=== PATIENT | male | born 1970 | race Caucasian/White ===

== ENCOUNTER 2024-01-08 19:19 | Emergency (ER) | payer OTHER, SELFPAY ==
[2024-01-08 19:29] VITALS: BP 218/143; PULSE 64; RESP 17; TEMP 36.6; O2SAT 98; BMI 32.8
--- NOTE | 2024-01-08 19:39 | DI.RAD.S_ITS ---
PROCEDURE: XR SHOULDER LT MIN 2V INDICATIONS: fell over backwards, L shoulder pain and limited movement, TECHNIQUE: 3 views of the shoulder were acquired. COMPARISON: None. FINDINGS: Bones: No definite acute fractures or dislocations. There is age-indeterminate cortical irregularity involving the distal, lateral aspect of the acromion. Chronic process favored. No suspicious bony lesions. Visualized ribs appear intact. Soft tissues: No suspicious soft tissue calcifications. IMPRESSION: No definite fracture. Age-indeterminate cortical irregularity involving the distal margin of the lateral acromion process is likely chronic. Recommend correlation with examination for focal tenderness in this region. If there are persistent symptoms or clinical suspicion for pathology, then repeat radiographs or advanced imaging (CT or MRI) may be considered for further evaluation. Dictated by: Preston Tellez M.D. on 01/08/2024 at 20:39 Approved by: Preston Tellez M.D. on 01/08/2024 at 20:41
[2024-01-08] MEDS: IBUPROFEN 400 MG TABLET 800 MG PO (20:38)
[2024-01-08] MEDS: ACETAMINOPHEN 325 MG TABLET 650 MG PO (20:38)
--- NOTE | 2024-01-08 21:40 | ED_ITS ---
HPI - Fall General Chief Complaint: Fall Stated Complaint: L Arm/Back Pain, Need XRays Time Seen by Provider: 01/08/24 21:30 Source: patient Mode of arrival: Ambulatory History of Present Illness HPI Narrative: 53-year-old male presents for evaluation of left shoulder pain and generalized lumbar back pain after a workplace incident a few hours prior to arrival. Patient states that he was working when he tripped over a box, landing on his left side and jarring his left shoulder. He initially went to urgent care, but they were closing and referred him to the ER for evaluation. Patient received x-ray imaging of his shoulder at the urgent care, but he was requesting lumbar x-rays. He states that he was told that if he does not receive evaluation during his initial [facility] exam then he would be ineligible for further workup for his injuries. Related Data Home Medications Medication Instructions Recorded Confirmed No Known Home Medications 01/08/24 01/08/24 Allergies Allergy/AdvReac Type Severity Reaction Status Date / Time No Known Drug Allergies Allergy Unverified 01/08/24 18:36 Patient History Social History Smoking Status: Never smoker Smoking Status: Never smoker alcohol intake frequency: 0-2 drinks per day Substance Use Type: does not use Exam Initial Vital Signs Initial Vital Signs: Vital Signs Temperature 97.8 F 01/08/24 19:29 Pulse Rate 64 01/08/24 19:29 Respiratory Rate 17 01/08/24 19:29 Blood Pressure 218/143 H 01/08/24 19:29 Pulse Oximetry 98 01/08/24 19:29 Oxygen Delivery Method Room Air 01/08/24 19:29 Const: Awake, alert, no acute distress, nontoxic appearing MSK shoulder: Right shoulder normal, left shoulder with tenderness over AC joint, able to shrug, move biceps, neurovascularly intact MSK back: Generalized lumbar tenderness to deep palpation, no midline tenderness Skin: Warm, Dry, intact, no rashes Neuro: AO x3, CN II-XII grossly intact, moves all extremities Course Orders Ordered: ED Orders 01/08/24 19:39 XR shoulder LT min 2V Stat 01/08/24 21:40 XR lumbar spine 2-3V Stat Discontinued Medications Acetaminophen (Acetaminophen 325 Mg Tablet) 650 mg PO NOW ONE Stop: 01/08/24 20:36 Last Admin: 01/08/24 20:38 Dose: 650 mg Documented By: DEAN Hydrocodone Bitart/Acetaminophen (Hydrocodone/Acet 5/325 Prepack) 1 bottle MISC DIRECTED ONE Stop: 01/08/24 22:16 Last Admin: 01/08/24 22:23 Dose: 1 bottle Documented By: DANIEL Ibuprofen (Ibuprofen 400 Mg Tablet) 800 mg PO NOW ONE Stop: 01/08/24 20:36 Last Admin: 01/08/24 20:38 Dose: 800 mg Documented By: DEAN Vital Signs Vital signs: Vital Signs - 8 hr 01/08/24 19:29 Temperature 97.8 F Pulse Rate 64 Respiratory Rate 17 Blood Pressure 218/143 H Pulse Oximetry 98 Oxygen Delivery Method Room Air MDM - Fall Imaging Data Extremity x-ray #1: Radiologist's Impression: PROCEDURE: XR LUMBAR SPINE 2-3V INDICATIONS: GLF, LUMBAR BACK PAIN TECHNIQUE: 3 views of the lumbar spine were acquired. COMPARISON: None. FINDINGS: Bones: 5 [id number] vertebrae are present. There is mild rightward curvature of thoracolumbar spine with apex at L2 level. No vertebral body compression fractures. Degenerative endplate changes are noted at L3-4 through L5-S1 levels. No suspicious bony lesions. Soft tissues: Overlying bowel gas pattern is normal. No suspicious soft tissue calcifications. IMPRESSION: Mild rightward curvature of lumbar spine as above. Mild degenerative disc disease in mid to lower lumbar spine. No acute compression fracture or significant spondylolisthesis. Dictated by: Eren Valadez M.D. on 01/08/2024 at 22:46 Approved by: Eren Valadez M.D. on 01/08/2024 at 22:47 Extremity x-ray #2: Radiologist's Impression: PROCEDURE: XR SHOULDER LT MIN 2V INDICATIONS: fell over backwards, L shoulder pain and limited movement, TECHNIQUE: 3 views of the shoulder were acquired. COMPARISON: None. FINDINGS: Bones: No definite acute fractures or dislocations. There is age-indeterminate cortical irregularity involving the distal, lateral aspect of the acromion. Chronic process favored. No suspicious bony lesions. Visualized ribs appear intact. Soft tissues: No suspicious soft tissue calcifications. IMPRESSION: No definite fracture. Age-indeterminate cortical irregularity involving the distal margin of the lateral acromion process is likely chronic. Recommend correlation with examination for focal tenderness in this region. If there are persistent symptoms or clinical suspicion for pathology, then repeat radiographs or advanced imaging (CT or MRI) may be considered for further evaluation. Dictated by: Preston Tellez M.D. on 01/08/2024 at 20:39 Approved by: Preston Tellez M.D. on 01/08/2024 at 20:41 [facility] Narrative Medical decision making narrative: Well-appearing patient with musculoskeletal pain after ground level fall. Denies hitting his head or loss of consciousness. Shoulder x-ray show age indeterminate cortical irregularity of the acromion process. Thought likely to be chronic, but patient denies any injury in this area preceding the event. Lumbar spinous x-rays negative for acute traumatic findings. Patient placed in sling for comfort, given short course of pain medications, otherwise counseled to use Tylenol and ibuprofen as needed for discomfort. Patient lives in [place] and is not from the area. Counseled to follow up with [facility] about ortho follow up Discharge Plan Departure Patient Disposition: Home Clinical Impression: Acute shoulder pain Instructions: DI for Shoulder Pain Activity Restrictions/Additional Instructions: The x-rays of your shoulder showed an age indeterminate irregularity of your acromion process, which is a bone in your shoulder. Ice your shoulder, take Tylenol and ibuprofen as needed, you can also wear a sling as needed for comfort. I recommend following up with a bone and joint doctor when you get back home. You can also talk to [facility] to see if they can refer you to an orthopedic doctor The prepack of pain medication provided can cause drowsiness, so do not take this medication with alcohol or before driving. It can cause constipation so make sure you take a daily stool softener with this medication. Prescriptions: No Action No Known Home Medications Referrals: Doctor Vargas MD [Primary Care Provider] - Stand Alone Forms: Patient Portal/API
[2024-01-08] MEDS: HYDROCODONE/ACET 5/325 PREPACK 1 BOTTLE MISC (22:23)
== END 2024-01-08 22:30 | disposition home or self-care (01) ==
PROVIDERS: Emergency Provider Emergency Medicine
DX: M25.512 Pain in left shoulder (principal); M54.50 Low back pain, unspecified
CPT/HCPCS: 72100; 73030; 99283